=== PATIENT | male | born 2000 | race Caucasian/White ===

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

== ENCOUNTER 2021-11-02 16:25 | Emergency (ER) | payer OTHER, BC ==
[~2021-11-02] VITALS: Ht 182.8 cm; Wt 81.6 kg
[~2021-11-02 16:25] MED LIST changes: +Tobrex Ophth S2.5 ML OPH
[2021-11-02 17:12] VITALS: BP 122/62
== END 2021-11-02 20:45 | disposition home or self-care (01) ==
LOC: ED 16:25
DX: S60.221A Contusion of right hand, initial encounter (principal); Z79.899 Other long term (current) drug therapy; W22.8XXA Striking against or struck by other objects, initial encounter; Y93.89 Activity, other specified; Y92.89 Other specified places as the place of occurrence of the external cause; Y99.9 Unspecified external cause status

== ENCOUNTER 2022-05-06 19:21 | Emergency (ER) | payer OTHER, BC ==
[~2022-05-06] VITALS: Ht 177.8 cm; Wt 85.7 kg
[2022-05-06 19:27] VITALS: BP 116/64
[2022-05-06 19:52] LABS: BASO % 0.3 % (0.0-1.0); EOS % 0.3 % (1.0-4.0); HEMATOCRIT 45.1 % (42.0-52.0); LYMPH # 1.1 10*3/uL (1.3-4.4); MEAN CELL VOLUME 90.6 fl (80.0-94.0); MEAN CORPUSCULAR HGB 31.3 pg (27.0-31.0); MEAN CORPUSCULAR HGB CONC 34.6 g/dl (33.0-37.0); MEAN PLATELET VOLUME 9.6 fl (9.6-12.3); MONO # 0.6 10*3/uL (0.1-1.0); MONO % 16.3 % (3.0-9.0); NEUT % 54.1 % (47.0-73.0); PLATELET COUNT AUTOMATED 245 10*3/uL (130-400); RED BLOOD COUNT 4.98 10*6/uL (4.50-5.90); WHITE BLOOD COUNT 3.6 10*3/uL (4.8-10.8)
[2022-05-06 20:08] LABS: ALKALINE PHOSPHATASE 53 U/L (46-116); BUN 14 mg/dl (9-23); CHLORIDE 101 mmol/L (98-107); POTASSIUM 3.6 mmol/L (3.4-5.1); SGPT/ALT 50 U/L (10-49); TOTAL PROTEIN 7.2 gm/dL (6.0-8.0)
[2022-05-06] MEDS ORDERED: TAMIFLU 75MG CA75 MG PO (20:27)
== END 2022-05-06 20:39 | disposition home or self-care (01) ==
LOC: ED 19:21
PROVIDERS: Nurse Practitioner Family
DX: J10.1 Influenza due to other identified influenza virus with other respiratory manifestations (principal); Z20.822 Contact with and (suspected) exposure to COVID-19